=== PATIENT | male | born 1940 | race African-American/Black ===

== ENCOUNTER 2016-02-29 09:40 | Inpatient (IN) | payer OTHER ==
[~2016-02-29] VITALS: Ht 180.3 cm; Wt 141.5 kg
[~2016-02-29 09:40] MED LIST: AMITRIPTYLINE H25 MG PO; COUMADIN,JANTOVE5 MG PO; COUMADIN2 MG PO; K-DUR20 MEQ PO; LASIX40 MG PO; LASIX80 MG PO; LOPRESSOR50 MG PO; METOPROLOL SUCC50 MG PO; NOVOLIN 70100 UNIT/1 SQ; SIMVASTATIN20 MG PO; TOPROL XL50 MG PO; VITAMIN B COMP1 EACH PO; ZESTRIL,PRINIVI20 MG PO
[2016-02-29] MEDS ORDERED: WARFARIN SODIUM1 MG PO ×2 (10:42→10:43)
[2016-02-29] MEDS ORDERED: HUMULIN 70100 UNIT/2 SC (10:44)
[2016-02-29 11:08] LABS: POINT-OF-CARE METER ID UU13113702
[2016-02-29 12:34] LABS: EOSINOPHIL (%) 0.2 % (0-5); HEMATOCRIT 39.3 % (38.0-50.0); IMMATURE GRANULOCYTE (%) 0.4 % (0.0-0.7); IMMATURE GRANULOCYTE COUNT 0.5 K/uL; LYMPHOCYTE COUNT 1.8 K/uL (1.0-2.8); MCH 29.1 PG (29.0-34.0); MCHC 33.6 G/DL (30.0-36.0); MCV 86.6 FL (86-99); MEAN PLAT.VOLUME 9.7 uM^3 (9.0-12.4); MONOCYTE (%) 6.3 % (3-12); MONOCYTE COUNT 0.8 K/uL (0-0.8); NEUTROPHIL (%) 79.2 % (45-76); NEUTROPHIL COUNT 10.4 K/uL (1.8-6.4); PLATELET COUNT 345 K/uL (156-360); RBC DIS.WIDTH-SD 40.6 % (39-53); RED BLOOD COUNT 4.54 M/uL (4.00-5.50); WHITE BLOOD COUNT 13.1 K/uL (4.1-10.2)
[2016-02-29 12:49] LABS: CHLORIDE 100 mEq/L (99-109); POTASSIUM 5.3 mEq/L (3.7-5.4); SODIUM 134 mEq/L (136-147)
[2016-02-29 12:50] LABS: GLUCOSE 102 mg/dL (70-99)
[2016-02-29 12:52] LABS: ANION GAP 12 MEQ/L (2-14)
[2016-02-29 12:54] LABS: GFR ESTIMATE (CALCULATED) 33 mL/min/
[2016-02-29 12:55] LABS: UREA NITROGEN (BUN) 34 mg/dL (9-23)
[2016-02-29 13:41] LABS: INTER. NORMALIZED RATIO 7.5; PROTHROMBIN TIME 80.9 (9.2-11.2)
[2016-02-29 14:11] LABS: BILIRUBIN NEGATIVE; BLOOD LARGE; COLOR BROWN ((YELLOW)); GLUCOSE (STRIP) 100; KETONES NEGATIVE; PROTEIN (STRIP) 100; SPECIFIC GRAVITY 1.016 (1.000-1.030); UROBILINOGEN 0.2 MG/DL (0.2-1.0)
[2016-02-29 14:12] LABS: ADD MIUA? YES; LEUKOCYTES LARGE; NITRITE NEGATIVE
[2016-02-29 14:29] LABS: RED BLOOD CELLS TNTC /HPF (0-5); UCUL ADDED? YES; WHITE BLOOD CELLS TNTC /HPF (0-5)
[2016-02-29] MEDS ORDERED: NOVOLIN,HU100 UNITS/ SC (14:48)
[2016-02-29] MEDS ORDERED: COUMADIN4 MG PO (14:49)
[2016-02-29] MEDS ORDERED: LOPERAMIDE2 MG PO (14:50)
[2016-02-29 16:30] VITALS: BP 107/65
[2016-02-29 17:00] VITALS: BP 107/65
[2016-02-29 20:52] VITALS: BP 133/67
[2016-02-29 23:35] VITALS: BP 132/66
[2016-03-01 04:44] VITALS: BP 132/66
[2016-03-01 07:52] VITALS: BP 127/61
[2016-03-01 09:04] LABS: POINT-OF-CARE METER ID UU14174225
[2016-03-01 09:56] LABS: PROTHROMBIN TIME 20.3 (9.2-11.2)
[2016-03-01 10:03] LABS: ANION GAP 9 MEQ/L (2-14); C3 COMPLEMENT 137 MG/DL (58-170); C4 COMPLEMENT 50 MG/DL (10-40); CHLORIDE 103 MEQ/L (99-109); POTASSIUM 4.8 MEQ/L (3.7-5.4); SAMPLE HEMOLYSIS CHECK 0; SAMPLE ICTERIC CHECK 0; SAMPLE LIPEMIA CHECK 0; SODIUM 135 MEQ/L (136-147)
[2016-03-01 10:08] LABS: GFR ESTIMATE (CALCULATED) 45 mL/min/; GLUCOSE 117 mg/dL (70-99); UREA NITROGEN (BUN) 29 mg/dL (9-23)
[2016-03-01 10:17] LABS: INTACT PARATHYROID HORMONE 122 pg/mL (10-69)
[2016-03-01 10:33] LABS: AHBS INDEX 0.31; HEPATITIS B SURFACE ANTIBODY Nonreactive; HPCA INDEX 0.21
[2016-03-01 11:00] VITALS: BP 125/65
[2016-03-01 15:08] VITALS: BP 121/55
[2016-03-01 19:20] VITALS: BP 148/66
[2016-03-01 21:46] LABS: POINT-OF-CARE METER ID UU14174225
[2016-03-01 22:17] LABS: POINT-OF-CARE METER ID UU14174225
[2016-03-02] VITALS: BP 150/57
[2016-03-02 06:44] LABS: ANION GAP 8 MEQ/L (2-14); CHLORIDE 107 MEQ/L (99-109); GFR ESTIMATE (CALCULATED) 51 mL/min/; GLUCOSE 133 mg/dL (70-99); POTASSIUM 4.7 MEQ/L (3.7-5.4); SAMPLE HEMOLYSIS CHECK 0; SAMPLE ICTERIC CHECK 0; SAMPLE LIPEMIA CHECK 0; SODIUM 137 MEQ/L (136-147); UREA NITROGEN (BUN) 27 mg/dL (9-23)
[2016-03-02 07:09] LABS: INTER. NORMALIZED RATIO 1.6
[2016-03-02 07:38] LABS: Estimated Average Glucose 367 mg/dL (70-123); HEMOGLOBIN A1c (GLYCOHEMOGLOB) 14.4 % HGB (Below 5.7)
[2016-03-02 08:23] VITALS: BP 143/64
[2016-03-02 11:47] VITALS: BP 146/72
[2016-03-02 15:09] VITALS: BP 137/63
[2016-03-02 18:54] LABS: C DIFF TOXIN NEGATIVE (NEGATIVE)
[2016-03-02 18:57] LABS: PROBE CHECK PASS; SPECIMEN PROCESSING CONTROL PASS
[2016-03-02 19:58] VITALS: BP 147/64
[2016-03-02 21:18] LABS: POINT-OF-CARE METER ID UU14174225
[2016-03-02 23:57] VITALS: BP 129/59
[2016-03-03 04:25] VITALS: BP 133/62
[2016-03-03 07:18] LABS: INTER. NORMALIZED RATIO 1.5; PROTHROMBIN TIME 15.8 (9.2-11.2)
[2016-03-03 07:33] LABS: ANION GAP 7 MEQ/L (2-14); CHLORIDE 108 MEQ/L (99-109); GFR ESTIMATE (CALCULATED) 55 mL/min/; SAMPLE HEMOLYSIS CHECK 0; SAMPLE ICTERIC CHECK 0; SAMPLE LIPEMIA CHECK 0; SODIUM 135 MEQ/L (136-147); UREA NITROGEN (BUN) 20 mg/dL (9-23)
[2016-03-03 07:36] LABS: GLUCOSE 267 mg/dL (70-99)
[2016-03-03 08:40] VITALS: BP 172/66
[2016-03-03 11:42] VITALS: BP 165/62
[2016-03-03 16:04] VITALS: BP 163/73
[2016-03-03 17:47] LABS: MYELOPEROXIDASE ANTIBODY (MPO) <1.0 AI (<1.0); PROTEINASE-3 ANTIBODY+ <1.0 AI (<1.0)
[2016-03-03 19:42] VITALS: BP 147/88
[2016-03-04 00:25] VITALS: BP 164/61
[2016-03-04 06:53] LABS: PROTHROMBIN TIME 21.2 (9.2-11.2)
[2016-03-04 07:18] LABS: ANION GAP 6 MEQ/L (2-14); CHLORIDE 112 MEQ/L (99-109); GFR ESTIMATE (CALCULATED) > 59 mL/min/; POTASSIUM 4.5 MEQ/L (3.7-5.4); SAMPLE HEMOLYSIS CHECK 0; SAMPLE ICTERIC CHECK 0; SAMPLE LIPEMIA CHECK 0; SODIUM 138 MEQ/L (136-147); UREA NITROGEN (BUN) 16 mg/dL (9-23)
[2016-03-04 07:20] LABS: GLUCOSE 112 mg/dL (70-99)
[2016-03-04 07:55] VITALS: BP 152/66
[2016-03-04 10:01] LABS: URINE TOTAL PROTEIN 34 MG/DL (0-10)
[2016-03-04 11:55] VITALS: BP 167/72
[2016-03-04 15:42] VITALS: BP 129/76
[2016-03-04 19:33] VITALS: BP 145/67
[2016-03-04 23:36] VITALS: BP 148/58
[2016-03-05 04:43] LABS: CHLORIDE 110 mEq/L (99-109); POTASSIUM 4.6 mEq/L (3.7-5.4); SODIUM 136 mEq/L (136-147)
[2016-03-05 04:44] LABS: INTER. NORMALIZED RATIO 2.1; PROTHROMBIN TIME 22.2 (9.2-11.2)
[2016-03-05 04:47] LABS: ANION GAP 7 MEQ/L (2-14); GLUCOSE 173 mg/dL (70-99)
[2016-03-05 04:49] LABS: GFR ESTIMATE (CALCULATED) 55 mL/min/
[2016-03-05 04:50] LABS: UREA NITROGEN (BUN) 17 mg/dL (9-23)
[2016-03-05 04:52] LABS: URIC ACID 6.4 mg/dL (3.1-9.2)
[2016-03-05 08:00] VITALS: BP 132/61
[2016-03-05 08:14] LABS: HEMATOCRIT 35.4 % (38.0-50.0); MCH 28.8 PG (29.0-34.0); MCHC 31.4 G/DL (30.0-36.0); MCV 91.7 FL (86-99); MEAN PLAT.VOLUME 10.2 uM^3 (9.0-12.4); PLATELET COUNT 292 K/uL (156-360); RBC DIS.WIDTH-CV 13.9 % (11.8-14.6); RBC DIS.WIDTH-SD 46.2 % (39-53); RED BLOOD COUNT 3.86 M/uL (4.00-5.50); WHITE BLOOD COUNT 10.3 K/uL (4.1-10.2)
[2016-03-05 11:57] VITALS: BP 126/56
[2016-03-05] MEDS ORDERED: TAMSULOSIN HCL0.4 MG PO (13:40)
[2016-03-05] MEDS ORDERED: DICYCLOMINE HCL10 MG PO (13:40)
[2016-03-05] MEDS ORDERED: ERGOCALCIF50000 UNIT PO (13:40)
[2016-03-05] MEDS ORDERED: CEFTIN250 MG PO (13:40)
== END 2016-03-05 15:50 | disposition home health service (06) | DRG 690 ==
LOC: EME 09:40 → 5SOUTH 14:45 → EDOF 14:45 → 5SOUTH 16:10
PROVIDERS: Hospitalist; Internal Medicine; Internal Medicine Nephrology; Nurse Practitioner Adult Health; Physician Assistant
DX: N39.0 Urinary tract infection, site not specified (principal); N17.9 Acute kidney failure, unspecified; D68.32 Hemorrhagic disorder due to extrinsic circulating anticoagulants; I12.9 Hypertensive chronic kidney disease with stage 1 through stage 4 chronic kidney disease, or unspecified chronic kidney disease; T45.515A Adverse effect of anticoagulants, initial encounter; E11.22 Type 2 diabetes mellitus with diabetic chronic kidney disease; E87.5 Hyperkalemia; Z85.46 Personal history of malignant neoplasm of prostate; N18.3 Chronic kidney disease, stage 3 (moderate); Z86.718 Personal history of other venous thrombosis and embolism; Z86.711 Personal history of pulmonary embolism; E66.9 Obesity, unspecified; Z79.01 Long term (current) use of anticoagulants; Z68.39 Body mass index [BMI] 39.0-39.9, adult; R35.0 Frequency of micturition; I27.2 Other secondary pulmonary hypertension; E11.40 Type 2 diabetes mellitus with diabetic neuropathy, unspecified; E55.9 Vitamin D deficiency, unspecified; B96.1 Klebsiella pneumoniae [K. pneumoniae] as the cause of diseases classified elsewhere
CPT/HCPCS: 36415; 70450; 76770; 80048; 80069; 81003; 82306; 82436; 82570; 82948; 83036; 83970; 84156; 84300; 84550; 85025; 85027; 85610; 86021 90; 86160; 86334; 86335; 86706; 86803; 87077; 87086; 87186; 87340; 87493; 99281; 99285; G0103; J0696; J1815; J7030; J7050

== ENCOUNTER 2016-04-15 14:45 | Inpatient (IN) | payer OTHER ==
[~2016-04-15] VITALS: Ht 185.4 cm; Wt 122.5 kg
[~2016-04-15 14:45] MED LIST changes: +CEFTIN250 MG PO; +COUMADIN4 MG PO; +DICYCLOMINE HCL10 MG PO; +ERGOCALCIF50000 UNIT PO; +HUMULIN 70100 UNIT/2 SC; +LOPERAMIDE2 MG PO; +NOVOLIN,HU100 UNITS/ SC; +TAMSULOSIN HCL0.4 MG PO; +WARFARIN SODIUM1 MG PO
[2016-04-15 15:35] LABS: ADD MIUA? YES; BILIRUBIN NEGATIVE; BLOOD MODERATE; COLOR YELLOW ((YELLOW)); GLUCOSE (STRIP) >=500; KETONES NEGATIVE; LEUKOCYTES LARGE; NITRITE NEGATIVE; PROTEIN (STRIP) NEGATIVE; SPECIFIC GRAVITY 1.015 (1.000-1.030); UROBILINOGEN 0.2 MG/DL (0.2-1.0)
[2016-04-15 16:17] LABS: BACTERIA RARE /HPF; EPITHELIAL CELLS RARE /HPF; MUCUS NONE SEEN /LPF; RED BLOOD CELLS 30-40 /HPF (0-5); UCUL ADDED? YES; WHITE BLOOD CELLS TNTC /HPF (0-5)
[2016-04-15 16:57] LABS: EOSINOPHIL COUNT 0.1 K/uL (0-0.3); HEMATOCRIT 37.7 % (38.0-50.0); IMMATURE GRANULOCYTE (%) 0.1 % (0.0-0.7); IMMATURE GRANULOCYTE COUNT 0.1 K/uL; LYMPHOCYTE COUNT 1.8 K/uL (1.0-2.8); MCH 28.4 PG (29.0-34.0); MCHC 32.9 G/DL (30.0-36.0); MCV 86.5 FL (86-99); MEAN PLAT.VOLUME 9.3 uM^3 (9.0-12.4); MONOCYTE (%) 6.4 % (3-12); MONOCYTE COUNT 0.6 K/uL (0-0.8); NEUTROPHIL (%) 73.1 % (45-76); NEUTROPHIL COUNT 6.7 K/uL (1.8-6.4); PLATELET COUNT 278 K/uL (156-360); RBC DIS.WIDTH-CV 12.9 % (11.8-14.6); RBC DIS.WIDTH-SD 40.2 % (39-53); RED BLOOD COUNT 4.36 M/uL (4.00-5.50); WHITE BLOOD COUNT 9.2 K/uL (4.1-10.2)
[2016-04-15 17:06] LABS: INTER. NORMALIZED RATIO 1.9; PROTHROMBIN TIME 19.3 (9.2-11.2)
[2016-04-15 17:07] LABS: CHLORIDE 96 mEq/L (99-109); POTASSIUM 5.4 mEq/L (3.7-5.4); SODIUM 129 mEq/L (136-147)
[2016-04-15 17:11] LABS: ANION GAP 8 MEQ/L (2-14); TOTAL BILIRUBIN 0.4 mg/dL (0.0-1.0)
[2016-04-15 17:13] LABS: ALKALINE PHOSPHATASE 109 IU/L (3-129); GFR ESTIMATE (CALCULATED) 33 mL/min/
[2016-04-15 17:14] LABS: UREA NITROGEN (BUN) 31 mg/dL (9-23)
[2016-04-15 17:24] LABS: GLUCOSE 687 mg/dL (70-99)
[2016-04-15] MEDS ORDERED: WARFARIN SODIUM5 MG PO (18:27)
[2016-04-15] MEDS ORDERED: TAMSULOSIN HCL0.4 MG PO (18:28)
[2016-04-15 20:24] VITALS: BP 143/71
[2016-04-15 23:36] VITALS: BP 135/63
[2016-04-16] VITALS: BP 135/63
[2016-04-16 04:19] VITALS: BP 133/62
[2016-04-16 06:51] LABS: HEMATOCRIT 35.9 % (38.0-50.0); MCHC 33.1 G/DL (30.0-36.0); MCV 87.3 FL (86-99); MEAN PLAT.VOLUME 10.4 uM^3 (9.0-12.4); PLATELET COUNT 295 K/uL (156-360); RBC DIS.WIDTH-CV 13.4 % (11.8-14.6); RBC DIS.WIDTH-SD 42.7 % (39-53); RED BLOOD COUNT 4.11 M/uL (4.00-5.50); WHITE BLOOD COUNT 10.9 K/uL (4.1-10.2)
[2016-04-16 07:11] LABS: INTER. NORMALIZED RATIO 2.2; PROTHROMBIN TIME 23.4 (9.2-11.2)
[2016-04-16 07:19] LABS: ALKALINE PHOSPHATASE 88 IU/L (3-129); ANION GAP 10 MEQ/L (2-14); CHLORIDE 103 MEQ/L (99-109); POTASSIUM 4.7 MEQ/L (3.7-5.4); SAMPLE HEMOLYSIS CHECK 0; SAMPLE ICTERIC CHECK 0; SAMPLE LIPEMIA CHECK 0; TOTAL BILIRUBIN 0.4 MG/DL (0.0-1.0); UREA NITROGEN (BUN) 27 mg/dL (9-23)
[2016-04-16 07:22] LABS: GFR ESTIMATE (CALCULATED) 55 mL/min/; GLUCOSE 73 mg/dL (70-99); SODIUM 139 MEQ/L (136-147)
[2016-04-16 08:49] VITALS: BP 113/67
[2016-04-16 11:48] LABS: POINT-OF-CARE METER ID UU14188625
[2016-04-16 11:56] VITALS: BP 125/66
[2016-04-16 15:43] LABS: POINT-OF-CARE METER ID UU14188625
[2016-04-16 17:07] VITALS: BP 150/69
[2016-04-16 20:21] VITALS: BP 134/82
[2016-04-17] VITALS: BP 142/60
[2016-04-17 00:21] VITALS: BP 149/65
[2016-04-17 04:28] VITALS: BP 162/69
[2016-04-17 07:23] LABS: INTER. NORMALIZED RATIO 2.4; PROTHROMBIN TIME 25.5 (9.2-11.2)
[2016-04-17 07:27] VITALS: BP 144/47
[2016-04-17 07:40] LABS: ANION GAP 8 MEQ/L (2-14); CHLORIDE 105 MEQ/L (99-109); GFR ESTIMATE (CALCULATED) > 59 mL/min/; POTASSIUM 4.4 MEQ/L (3.7-5.4); SAMPLE HEMOLYSIS CHECK 0; SAMPLE ICTERIC CHECK 0; SAMPLE LIPEMIA CHECK 0; SODIUM 136 MEQ/L (136-147); UREA NITROGEN (BUN) 22 mg/dL (9-23)
[2016-04-17 07:41] LABS: GLUCOSE 240 mg/dL (70-99)
[2016-04-17 08:02] LABS: POINT-OF-CARE METER ID UU14174225
[2016-04-17 11:51] LABS: ANTI-HEPATITIS B CORE (IGM) Nonreactive; HBC IgM INDEX 0.07
[2016-04-17 12:26] LABS: POINT-OF-CARE METER ID UU14174225
[2016-04-17 12:30] VITALS: BP 138/52
[2016-04-17 12:50] LABS: POINT-OF-CARE METER ID UU14174225
[2016-04-17 16:15] VITALS: BP 143/65
== END 2016-04-17 18:33 | disposition home health service (06) | DRG 690 ==
LOC: EME 14:45 → 5SOUTH 18:05 → EDOF 18:05 → 5SOUTH 18:05
PROVIDERS: Emergency Medicine; Internal Medicine; Physician Assistant Medical
DX: N39.0 Urinary tract infection, site not specified (principal); N17.9 Acute kidney failure, unspecified; E87.0 Hyperosmolality and hypernatremia; E11.42 Type 2 diabetes mellitus with diabetic polyneuropathy; N40.1 Benign prostatic hyperplasia with lower urinary tract symptoms; E11.65 Type 2 diabetes mellitus with hyperglycemia; Z86.718 Personal history of other venous thrombosis and embolism; I12.9 Hypertensive chronic kidney disease with stage 1 through stage 4 chronic kidney disease, or unspecified chronic kidney disease; Z79.4 Long term (current) use of insulin; Z92.3 Personal history of irradiation; Z79.01 Long term (current) use of anticoagulants; Z90.79 Acquired absence of other genital organ(s); Z86.711 Personal history of pulmonary embolism; Z85.46 Personal history of malignant neoplasm of prostate; B96.1 Klebsiella pneumoniae [K. pneumoniae] as the cause of diseases classified elsewhere; R31.0 Gross hematuria; E87.6 Hypokalemia; I27.2 Other secondary pulmonary hypertension; E86.0 Dehydration; E78.00 Pure hypercholesterolemia, unspecified; N18.9 Chronic kidney disease, unspecified; R32 Unspecified urinary incontinence
CPT/HCPCS: 80048; 80053; 81003; 82948; 85025; 85027; 85610; 86705; 87077; 87086; 87186; 99281; 99285; J0696; J1644; J1815; J7030; J7050

== ENCOUNTER 2016-04-27 13:25 | Emergency (ER) | payer OTHER ==
[~2016-04-27] VITALS: Ht 182.9 cm; Wt 126.4 kg
[~2016-04-27 13:25] MED LIST changes: +WARFARIN SODIUM5 MG PO
[2016-04-27 14:55] LABS: ADD MIUA? YES; BILIRUBIN NEGATIVE; BLOOD MODERATE; COLOR YELLOW ((YELLOW)); GLUCOSE (STRIP) >=500; KETONES NEGATIVE; LEUKOCYTES LARGE; NITRITE NEGATIVE; PROTEIN (STRIP) 100; SPECIFIC GRAVITY 1.016 (1.000-1.030); UROBILINOGEN 0.2 MG/DL (0.2-1.0)
[2016-04-27 15:16] LABS: HEMATOCRIT 37.4 % (38.0-50.0); MCHC 31.8 G/DL (30.0-36.0); MEAN PLAT.VOLUME 9.1 uM^3 (9.0-12.4); PLATELET COUNT 315 K/uL (156-360); RBC DIS.WIDTH-CV 13.2 % (11.8-14.6); RBC DIS.WIDTH-SD 42.5 % (39-53); RED BLOOD COUNT 4.25 M/uL (4.00-5.50); WHITE BLOOD COUNT 11.3 K/uL (4.1-10.2)
[2016-04-27 15:30] LABS: CHLORIDE 101 mEq/L (99-109); POTASSIUM 3.9 mEq/L (3.7-5.4); SODIUM 134 mEq/L (136-147)
[2016-04-27 15:33] LABS: ANION GAP 9 MEQ/L (2-14)
[2016-04-27 15:35] LABS: GFR ESTIMATE (CALCULATED) > 59 mL/min/
[2016-04-27 15:36] LABS: UREA NITROGEN (BUN) 15 mg/dL (9-23)
[2016-04-27 16:02] LABS: WHITE BLOOD CELLS TNTC /HPF (0-5)
[2016-04-27 16:05] LABS: GLUCOSE 538 mg/dL (70-99)
[2016-04-27 19:08] LABS: POINT-OF-CARE METER ID UU14100415
[2016-04-27] MEDS ORDERED: KEFLEX500 MG PO (19:10)
[2016-04-27 19:36] VITALS: BP 151/64
[2016-05-03 08:31] LABS: POINT-OF-CARE METER ID UU14100415
[2016-05-03 08:31] LABS: POINT-OF-CARE METER ID UU14100415
== END 2016-04-27 19:56 | disposition home or self-care (01) ==
LOC: EME → EDBD 13:25 → EME 13:25 → EDSEX 13:25 → EME 19:56
PROVIDERS: Emergency Medicine
DX: E11.65 Type 2 diabetes mellitus with hyperglycemia (principal); N39.0 Urinary tract infection, site not specified; I10 Essential (primary) hypertension; Z86.711 Personal history of pulmonary embolism; Z86.718 Personal history of other venous thrombosis and embolism; Z79.4 Long term (current) use of insulin; Z79.01 Long term (current) use of anticoagulants; Z87.891 Personal history of nicotine dependence
CPT/HCPCS: 80048; 81003; 82948; 85027; 99281; 99285; J7030

== ENCOUNTER 2016-05-20 01:28 | Inpatient (IN) | payer OTHER ==
[~2016-05-20] VITALS: Ht 185.4 cm; Wt 122.2 kg
[~2016-05-20 01:28] MED LIST changes: +KEFLEX500 MG PO
[2016-05-20 02:02] LABS: ADD MIUA? YES; BILIRUBIN NEGATIVE; BLOOD SMALL; COLOR YELLOW ((YELLOW)); GLUCOSE (STRIP) >=500; KETONES NEGATIVE; LEUKOCYTES LARGE; NITRITE NEGATIVE; PROTEIN (STRIP) 30; SPECIFIC GRAVITY 1.012 (1.000-1.030); UROBILINOGEN 0.2 MG/DL (0.2-1.0)
[2016-05-20 02:25] LABS: BACTERIA 2+ /HPF; EPITHELIAL CELLS NONE SEEN /HPF; MUCUS NONE SEEN /LPF; UCUL ADDED? YES; WHITE BLOOD CELLS TNTC /HPF (0-5)
[2016-05-20 03:05] LABS: HEMATOCRIT 33.9 % (38.0-50.0); MCH 27.7 PG (29.0-34.0); MCHC 31.3 G/DL (30.0-36.0); MCV 88.7 FL (86-99); MEAN PLAT.VOLUME 9.8 uM^3 (9.0-12.4); PLATELET COUNT 300 K/uL (156-360); RBC DIS.WIDTH-CV 13.7 % (11.8-14.6); RED BLOOD COUNT 3.82 M/uL (4.00-5.50); WHITE BLOOD COUNT 9.3 K/uL (4.1-10.2)
[2016-05-20 03:15] LABS: CHLORIDE 101 mEq/L (99-109); POTASSIUM 4.5 mEq/L (3.7-5.4); SODIUM 132 mEq/L (136-147)
[2016-05-20 03:18] LABS: ANION GAP 8 MEQ/L (2-14)
[2016-05-20 03:19] LABS: TOTAL BILIRUBIN 0.3 mg/dL (0.0-1.0)
[2016-05-20 03:20] LABS: ALKALINE PHOSPHATASE 98 IU/L (3-129)
[2016-05-20 03:21] LABS: GFR ESTIMATE (CALCULATED) 51 mL/min/
[2016-05-20 03:22] LABS: UREA NITROGEN (BUN) 21 mg/dL (9-23)
[2016-05-20 03:24] LABS: LIPASE 21 U/L (1.0-51.0)
[2016-05-20 03:25] LABS: TROP-I INTERPRETATION NEGATIVE; TROPONIN-I < 0.01 ng/mL (0.0-0.30)
[2016-05-20 03:27] LABS: GLUCOSE 566 mg/dL (70-99)
[2016-05-20 04:08] LABS: INTER. NORMALIZED RATIO 1.2; PROTHROMBIN TIME 12.7 (9.2-11.2); PTT 30.3 (25-32)
[2016-05-20 05:34] LABS: POINT-OF-CARE METER ID UU13113702; POINT-OF-CARE USER ID 515033160
[2016-05-20 06:30] VITALS: BP 156/69
[2016-05-20 07:17] LABS: Estimated Average Glucose 335 mg/dL (70-123); HEMOGLOBIN A1c (GLYCOHEMOGLOB) 13.3 % HGB (Below 5.7)
[2016-05-20 07:35] LABS: HEMATOCRIT 34.4 % (38.0-50.0); MCH 28.2 PG (29.0-34.0); MCHC 31.4 G/DL (30.0-36.0); MCV 89.8 FL (86-99); PLATELET COUNT 290 K/uL (156-360); RBC DIS.WIDTH-CV 13.7 % (11.8-14.6); RBC DIS.WIDTH-SD 45.1 % (39-53); RED BLOOD COUNT 3.83 M/uL (4.00-5.50); WHITE BLOOD COUNT 10.7 K/uL (4.1-10.2)
[2016-05-20 09:03] LABS: POINT-OF-CARE METER ID UU14174225
[2016-05-20 12:20] VITALS: BP 152/70
[2016-05-20 12:26] LABS: POINT-OF-CARE METER ID UU14174225
[2016-05-20] MEDS ORDERED: ZOCOR20 MG PO (12:50)
[2016-05-20 15:11] VITALS: BP 148/66
[2016-05-20 17:32] LABS: POINT-OF-CARE METER ID UU14174225
[2016-05-20 20:27] VITALS: BP 151/66
[2016-05-20 21:36] LABS: POINT-OF-CARE METER ID UU14174225
[2016-05-20 22:07] LABS: POINT-OF-CARE METER ID UU14174225
[2016-05-20 22:17] LABS: POINT-OF-CARE METER ID UU14174225
[2016-05-21 00:28] VITALS: BP 141/67
[2016-05-21 03:53] VITALS: BP 150/70
[2016-05-21 07:21] LABS: HEMATOCRIT 33.9 % (38.0-50.0); MCH 27.5 PG (29.0-34.0); MCV 88.7 FL (86-99); MEAN PLAT.VOLUME 9.9 uM^3 (9.0-12.4); PLATELET COUNT 307 K/uL (156-360); RBC DIS.WIDTH-CV 13.9 % (11.8-14.6); RBC DIS.WIDTH-SD 45.5 % (39-53); RED BLOOD COUNT 3.82 M/uL (4.00-5.50)
[2016-05-21 07:47] LABS: ALKALINE PHOSPHATASE 76 IU/L (3-129); ANION GAP 7 MEQ/L (2-14); CHLORIDE 109 MEQ/L (99-109); GFR ESTIMATE (CALCULATED) > 59 mL/min/; POTASSIUM 4.2 MEQ/L (3.7-5.4); SAMPLE HEMOLYSIS CHECK 0; SAMPLE ICTERIC CHECK 0; SAMPLE LIPEMIA CHECK 0; TOTAL BILIRUBIN 0.2 MG/DL (0.0-1.0); UREA NITROGEN (BUN) 15 mg/dL (9-23)
[2016-05-21 07:48] LABS: GLUCOSE 61 mg/dL (70-99); SODIUM 141 MEQ/L (136-147)
[2016-05-21 07:56] LABS: PTT 32.7 (25-32)
[2016-05-21 08:05] VITALS: BP 174/71
[2016-05-21 08:32] LABS: POINT-OF-CARE METER ID UU14188625
[2016-05-21 10:01] LABS: INTER. NORMALIZED RATIO 1.3; PROTHROMBIN TIME 12.8 (9.2-11.2)
[2016-05-21 11:40] LABS: POINT-OF-CARE METER ID UU14188625
[2016-05-21 11:53] VITALS: BP 164/72
[2016-05-21 15:59] VITALS: BP 159/80
[2016-05-21 19:33] VITALS: BP 155/76
[2016-05-22 04:31] VITALS: BP 149/67
[2016-05-22 06:34] LABS: HEMATOCRIT 34.8 % (38.0-50.0); MCH 27.6 PG (29.0-34.0); MCHC 30.7 G/DL (30.0-36.0); MCV 89.7 FL (86-99); MEAN PLAT.VOLUME 9.8 uM^3 (9.0-12.4); PLATELET COUNT 315 K/uL (156-360); RBC DIS.WIDTH-CV 14.2 % (11.8-14.6); RBC DIS.WIDTH-SD 46.7 % (39-53); RED BLOOD COUNT 3.88 M/uL (4.00-5.50)
[2016-05-22 06:45] LABS: INTER. NORMALIZED RATIO 1.4; PROTHROMBIN TIME 14.1 (9.2-11.2)
[2016-05-22 07:27] LABS: PTT 72.4 (25-32)
[2016-05-22 08:04] VITALS: BP 144/67
[2016-05-22 08:27] LABS: POINT-OF-CARE METER ID UU14174225
[2016-05-22 11:10] LABS: ANION GAP 10 MEQ/L (2-14); CHLORIDE 107 MEQ/L (99-109); GFR ESTIMATE (CALCULATED) > 59 mL/min/; POTASSIUM 4.8 MEQ/L (3.7-5.4); SAMPLE HEMOLYSIS CHECK 0; SAMPLE ICTERIC CHECK 0; SAMPLE LIPEMIA CHECK 0; SODIUM 140 MEQ/L (136-147); UREA NITROGEN (BUN) 15 mg/dL (9-23)
[2016-05-22 11:11] LABS: GLUCOSE 220 mg/dL (70-99)
[2016-05-22 11:15] VITALS: BP 143/65
[2016-05-22 11:50] LABS: POINT-OF-CARE METER ID UU14174225
[2016-05-22 11:54] LABS: INTER. NORMALIZED RATIO 1.4; PROTHROMBIN TIME 14.4 (9.2-11.2); PTT 62.3 (25-32)
[2016-05-22 15:12] VITALS: BP 174/81
[2016-05-22 16:44] LABS: POINT-OF-CARE METER ID UU14174225
[2016-05-22 18:25] LABS: INTER. NORMALIZED RATIO 1.4; PROTHROMBIN TIME 14.4 (9.2-11.2); PTT 60.2 (25-32)
[2016-05-22 19:38] VITALS: BP 159/71
[2016-05-22 23:20] VITALS: BP 160/72
[2016-05-23 02:53] LABS: POINT-OF-CARE METER ID UU14188625
[2016-05-23 04:01] VITALS: BP 143/76
[2016-05-23 06:50] LABS: INTER. NORMALIZED RATIO 1.5; PROTHROMBIN TIME 15.9 (9.2-11.2)
[2016-05-23 08:54] VITALS: BP 152/68
[2016-05-23 11:24] VITALS: BP 159/70
[2016-05-23] MEDS ORDERED: WARFARIN SODIUM1 MG PO (11:58)
[2016-05-23] MEDS ORDERED: LOPRESSOR50 MG PO (11:59)
[2016-05-23] MEDS ORDERED: BACTRIM,SEPT1 TABLET PO (12:00)
== END 2016-05-23 16:07 | DRG 690 ==
LOC: EME → EDBD 01:28 → EME 01:28 → 5SOUTH 04:38 → EDOF 04:38 → 5SOUTH 06:11
PROVIDERS: Emergency Medicine; Internal Medicine
DX: N39.0 Urinary tract infection, site not specified (principal); N17.9 Acute kidney failure, unspecified; E87.1 Hypo-osmolality and hyponatremia; E11.40 Type 2 diabetes mellitus with diabetic neuropathy, unspecified; E11.65 Type 2 diabetes mellitus with hyperglycemia; F33.9 Major depressive disorder, recurrent, unspecified; L30.9 Dermatitis, unspecified; E11.22 Type 2 diabetes mellitus with diabetic chronic kidney disease; E78.2 Mixed hyperlipidemia; E78.5 Hyperlipidemia, unspecified; F03.90 Unspecified dementia, unspecified severity, without behavioral disturbance, psychotic disturbance, mood disturbance, and anxiety; E66.9 Obesity, unspecified; I27.2 Other secondary pulmonary hypertension; N39.490 Overflow incontinence; N18.3 Chronic kidney disease, stage 3 (moderate); N40.1 Benign prostatic hyperplasia with lower urinary tract symptoms; R79.1 Abnormal coagulation profile; C61 Malignant neoplasm of prostate; I12.9 Hypertensive chronic kidney disease with stage 1 through stage 4 chronic kidney disease, or unspecified chronic kidney disease; B96.1 Klebsiella pneumoniae [K. pneumoniae] as the cause of diseases classified elsewhere; Z79.01 Long term (current) use of anticoagulants; Z86.711 Personal history of pulmonary embolism; Z68.35 Body mass index [BMI] 35.0-35.9, adult; Z79.4 Long term (current) use of insulin; Z91.19 Patient's noncompliance with other medical treatment and regimen
CPT/HCPCS: 71010; 73523; 80048; 80048 91; 80053; 81003; 82010; 82800; 82948; 83036; 83690; 84484; 85027; 85610; 85730; 87077; 87086; 87186; 93005; 99281; 99284; J0696; J1815; J7030; J7050

== ENCOUNTER 2016-05-24 00:09 | Emergency (ER) | payer OTHER ==
[~2016-05-24] VITALS: Ht 185.4 cm; Wt 127.7 kg
[~2016-05-24 00:09] MED LIST changes: +BACTRIM,SEPT1 TABLET PO; +ZOCOR20 MG PO
[2016-05-24 00:15] VITALS: BP 160/54
== END 2016-05-24 01:47 | disposition left against medical advice (07) ==
LOC: EME 00:09
DX: R26.9 Unspecified abnormalities of gait and mobility (principal); E11.9 Type 2 diabetes mellitus without complications; Z87.440 Personal history of urinary (tract) infections; Z74.8 Other problems related to care provider dependency; Z91.19 Patient's noncompliance with other medical treatment and regimen; Z79.4 Long term (current) use of insulin
CPT/HCPCS: 81003; 99281; 99283

== ENCOUNTER 2016-06-13 18:02 | Emergency (ER) | payer OTHER ==
[~2016-06-13] VITALS: Ht 185.4 cm; Wt 122.8 kg
[2016-06-13 18:42] LABS: HEMATOCRIT 39.6 % (38.0-50.0); MCH 27.9 PG (29.0-34.0); MCHC 31.3 G/DL (30.0-36.0); MEAN PLAT.VOLUME 8.9 uM^3 (9.0-12.4); PLATELET COUNT 330 K/uL (156-360); RBC DIS.WIDTH-CV 14.1 % (11.8-14.6); RBC DIS.WIDTH-SD 46.1 % (39-53); RED BLOOD COUNT 4.45 M/uL (4.00-5.50); WHITE BLOOD COUNT 8.4 K/uL (4.1-10.2)
[2016-06-13 18:53] LABS: CHLORIDE 106 mEq/L (99-109); POTASSIUM 4.5 mEq/L (3.7-5.4); SODIUM 139 mEq/L (136-147)
[2016-06-13 18:56] LABS: GLUCOSE 48 mg/dL (70-99)
[2016-06-13 18:57] LABS: ANION GAP 11 MEQ/L (2-14); TOTAL BILIRUBIN 0.3 mg/dL (0.0-1.0)
[2016-06-13 18:59] LABS: ALKALINE PHOSPHATASE 109 IU/L (3-129); GFR ESTIMATE (CALCULATED) > 59 mL/min/
[2016-06-13 19:00] LABS: UREA NITROGEN (BUN) 22 mg/dL (9-23)
[2016-06-13 19:01] LABS: DIRECT BILIRUBIN 0.1 mg/dL (0.0-0.3)
[2016-06-13 19:03] LABS: CREATINE KINASE 95 IU/L (1-294); LIPASE 16 U/L (1.0-51.0); TOTAL CK 95 IU/L (1-294)
[2016-06-13 19:04] LABS: INTER. NORMALIZED RATIO 1.5; PROTHROMBIN TIME 15.5 (9.2-11.2)
[2016-06-13 19:11] LABS: CK-MB 2.5 ng/mL (0.0-4.9)
[2016-06-13] MEDS ORDERED: VALIUM5 MG PO (19:33)
[2016-06-13 20:35] VITALS: BP 125/65
== END 2016-06-13 20:35 | disposition home or self-care (01) ==
LOC: EME 18:02
PROVIDERS: Emergency Medicine
DX: R25.2 Cramp and spasm (principal); R60.0 Localized edema; E11.9 Type 2 diabetes mellitus without complications; I11.0 Hypertensive heart disease with heart failure; I50.9 Heart failure, unspecified; E78.5 Hyperlipidemia, unspecified; Z86.711 Personal history of pulmonary embolism; Z86.718 Personal history of other venous thrombosis and embolism; Z85.46 Personal history of malignant neoplasm of prostate; Z79.4 Long term (current) use of insulin; Z87.891 Personal history of nicotine dependence
CPT/HCPCS: 80048; 80076; 82550; 82553; 83690; 85027; 85610; 99281; 99284

== ENCOUNTER 2016-06-26 06:50 | Emergency (ER) | payer OTHER ==
[~2016-06-26] VITALS: Ht 185.4 cm; Wt 119.4 kg
[~2016-06-26 06:50] MED LIST changes: +VALIUM5 MG PO
[2016-06-26 08:29] LABS: ADD MIUA? YES; BILIRUBIN NEGATIVE; BLOOD SMALL; COLOR YELLOW ((YELLOW)); GLUCOSE (STRIP) >=500; KETONES NEGATIVE; LEUKOCYTES LARGE; NITRITE NEGATIVE; PROTEIN (STRIP) 100; SPECIFIC GRAVITY 1.012 (1.000-1.030); UROBILINOGEN 0.2 MG/DL (0.2-1.0)
[2016-06-26 08:39] LABS: BACTERIA 3+ /HPF; BUDDING YEAST 4+; EPITHELIAL CELLS NONE SEEN /HPF; MUCUS NONE SEEN /LPF; RED BLOOD CELLS 15-20 /HPF (0-5); UCUL ADDED? YES; WHITE BLOOD CELLS TNTC /HPF (0-5); WHITE BLOOD CELLS CLUMP MANY /HPF (0-5)
[2016-06-26] MEDS ORDERED: BACTRIM,SEPT1 TABLET PO (08:53)
[2016-06-26 09:16] VITALS: BP 114/45
[2016-06-26 09:23] LABS: POINT-OF-CARE METER ID UU14100415
== END 2016-06-26 09:20 | disposition home or self-care (01) ==
LOC: EME 06:50
PROVIDERS: Nurse Practitioner Family
DX: N39.0 Urinary tract infection, site not specified (principal); R31.9 Hematuria, unspecified; E11.65 Type 2 diabetes mellitus with hyperglycemia; E78.5 Hyperlipidemia, unspecified; I10 Essential (primary) hypertension; Z85.46 Personal history of malignant neoplasm of prostate; Z86.711 Personal history of pulmonary embolism; Z86.718 Personal history of other venous thrombosis and embolism; Z79.4 Long term (current) use of insulin; Z87.891 Personal history of nicotine dependence
CPT/HCPCS: 81003; 82948; 87077; 87086; 87186; 99281; 99284

== ENCOUNTER 2017-02-17 15:00 | Emergency (ER) | payer OTHER ==
[~2017-02-17] VITALS: Ht 182.9 cm; Wt 95.0 kg
[2017-02-17 18:13] LABS: HEMATOCRIT 37.7 % (38.0-50.0); HEMOGLOBIN 12.7 G/DL (12.5-16.6); MCH 29.3 PG (29.0-34.0); MCHC 33.7 G/DL (30.0-36.0); MCV 86.9 FL (86-99); PLATELET COUNT 276 K/uL (156-360); RBC DIS.WIDTH-SD 40.9 % (39-53); RED BLOOD COUNT 4.34 M/uL (4.00-5.50); WHITE BLOOD COUNT 11.7 K/uL (4.1-10.2)
[2017-02-17 18:14] LABS: APPEARANCE CLOUDY ((CLEAR)); BILIRUBIN NEGATIVE; BLOOD MODERATE; COLOR YELLOW ((YELLOW)); GLUCOSE (STRIP) >=500; KETONES 5; LEUKOCYTES LARGE; NITRITE NEGATIVE; PROTEIN (STRIP) 100; SPECIFIC GRAVITY 1.014 (1.000-1.030); UROBILINOGEN 0.2 MG/DL (0.2-1.0)
[2017-02-17 18:21] LABS: ALBUMIN 3.4 g/dL (3.2-4.8)
[2017-02-17 18:22] LABS: CHLORIDE 97 mEq/L (99-109); POTASSIUM 5.6 mEq/L (3.7-5.4); SODIUM 126 mEq/L (136-147)
[2017-02-17 18:26] LABS: TOTAL BILIRUBIN 0.5 mg/dL (0.0-1.0)
[2017-02-17 18:27] LABS: ALKALINE PHOSPHATASE 138 IU/L (3-129)
[2017-02-17 18:28] LABS: CREATININE 2.1 mg/dL (0.6-1.3); GFR ESTIMATE (CALCULATED) 40 mL/min/ (58.99-99999)
[2017-02-17 18:29] LABS: AST (GOT) 21 IU/L (2-34); UREA NITROGEN (BUN) 40 mg/dL (9-23)
[2017-02-17 18:30] LABS: GLUCOSE 706 mg/dL (70-99)
[2017-02-17 18:31] LABS: ALT (GPT) 21 IU/L (3-49)
[2017-02-17 18:49] LABS: AMORPHOUS URATES CRYSTALS 1+; BACTERIA 1+ /HPF; EPITHELIAL CELLS NONE SEEN /HPF; MUCUS NONE SEEN /LPF; RED BLOOD CELLS 0-5 /HPF (0-5); UCUL ADDED? YES; WHITE BLOOD CELLS TNTC /HPF (0-5)
[2017-02-17 22:57] LABS: CHLORIDE 104 mEq/L (99-109); POTASSIUM 5.1 mEq/L (3.7-5.4); SODIUM 130 mEq/L (136-147)
[2017-02-17 23:00] LABS: GLUCOSE 513 mg/dL (70-99)
[2017-02-17 23:03] LABS: CREATININE 1.7 mg/dL (0.6-1.3); GFR ESTIMATE (CALCULATED) 51 mL/min/ (58.99-99999)
[2017-02-17 23:04] LABS: UREA NITROGEN (BUN) 33 mg/dL (9-23)
[2017-02-17] MEDS ORDERED: NORCO 5/3251 TABLET PO (23:27)
[2017-02-17] MEDS ORDERED: FLOMAX0.4 MG PO (23:27)
[2017-02-17] MEDS ORDERED: LEVAQUIN750 MG PO (23:27)
[2017-02-18 02:19] VITALS: BP 171/78
[2017-02-19] MEDS ORDERED: COUMADIN1 MG PO ×2 (19:44→19:45)
[2017-02-19] MEDS ORDERED: COUMADIN5 MG PO (19:46)
[2017-02-19] MEDS ORDERED: VITAMIN B-6100 MG PO (19:48)
[2017-02-19] MEDS ORDERED: VISINE ADVANCED15 ML BOTH EYES (19:48)
[2017-02-19] MEDS ORDERED: IMODIUM A-D2 M2 PO (19:48)
[2017-02-19] MEDS ORDERED: TYLENOL EXTRA500 MG PO (19:49)
== END 2017-02-18 02:10 | disposition home or self-care (01) ==
LOC: EME 15:00
PROVIDERS: Emergency Medicine Emergency Medical Services
DX: E11.65 Type 2 diabetes mellitus with hyperglycemia (principal); E87.1 Hypo-osmolality and hyponatremia; E87.5 Hyperkalemia; Z91.14 Patient's other noncompliance with medication regimen; Z79.4 Long term (current) use of insulin; N40.1 Benign prostatic hyperplasia with lower urinary tract symptoms; N39.0 Urinary tract infection, site not specified; Z91.81 History of falling
CPT/HCPCS: 80048 91; 80053; 81003; 82948; 85027; 87077; 87086; 87186; 99281; 99285; J2270; J7040

== ENCOUNTER 2017-02-19 17:02 | Inpatient (IN) | payer OTHER ==
[~2017-02-19] VITALS: Ht 185.4 cm; Wt 132.7 kg
[~2017-02-19 17:02] MED LIST changes: +FLOMAX0.4 MG PO; +LEVAQUIN750 MG PO; +NORCO 5/3251 TABLET PO
[2017-02-19 17:25] LABS: CARBON DIOXIDE (BICARBONATE) 22.5 MEQ/L (20-31); HEMATOCRIT 36.3 % (38.0-50.0); MCH 29.4 PG (29.0-34.0); MCHC 33.1 G/DL (30.0-36.0); PLATELET COUNT 242 K/uL (156-360); RBC DIS.WIDTH-CV 13.2 % (11.8-14.6); RBC DIS.WIDTH-SD 43.3 % (39-53); RED BLOOD COUNT 4.08 M/uL (4.00-5.50); WHITE BLOOD COUNT 9.4 K/uL (4.1-10.2)
[2017-02-19 17:34] LABS: CHLORIDE 104 mEq/L (99-109); POTASSIUM 5.6 mEq/L (3.7-5.4); SODIUM 131 mEq/L (136-147)
[2017-02-19 17:40] LABS: CREATININE 1.9 mg/dL (0.6-1.3); GFR ESTIMATE (CALCULATED) 45 mL/min/ (58.99-99999)
[2017-02-19 17:41] LABS: UREA NITROGEN (BUN) 32 mg/dL (9-23)
[2017-02-19 17:43] LABS: GLUCOSE 462 mg/dL (70-99)
[2017-02-19 19:02] LABS: APPEARANCE CLOUDY ((CLEAR)); BILIRUBIN NEGATIVE; BLOOD MODERATE; COLOR YELLOW ((YELLOW)); GLUCOSE (STRIP) >=500; KETONES 5; LEUKOCYTES LARGE; NITRITE NEGATIVE; PROTEIN (STRIP) 100; SPECIFIC GRAVITY 1.014 (1.000-1.030); UROBILINOGEN 0.2 MG/DL (0.2-1.0)
[2017-02-19 19:21] LABS: BACTERIA 4+ /HPF; EPITHELIAL CELLS 1+ /HPF; MUCUS TRACE /LPF; RED BLOOD CELLS NONE SEEN /HPF (0-5); UCUL ADDED? YES; WHITE BLOOD CELLS TNTC /HPF (0-5)
[2017-02-19] MEDS ORDERED: COUMADIN1 MG PO ×2 (19:44→19:45)
[2017-02-19] MEDS ORDERED: COUMADIN5 MG PO (19:46)
[2017-02-19] MEDS ORDERED: VITAMIN B-6100 MG PO (19:48)
[2017-02-19] MEDS ORDERED: VISINE ADVANCED15 ML BOTH EYES (19:48)
[2017-02-19] MEDS ORDERED: IMODIUM A-D2 M2 PO (19:48)
[2017-02-19] MEDS ORDERED: TYLENOL EXTRA500 MG PO (19:49)
[2017-02-19 22:19] LABS: INTER. NORMALIZED RATIO 1.3
[2017-02-19 22:56] LABS: PTT 28.5 SEC (25-37)
[2017-02-19 23:47] LABS: CHLORIDE 112 mEq/L (99-109); POTASSIUM 4.6 mEq/L (3.7-5.4)
[2017-02-19 23:48] LABS: GLUCOSE 288 mg/dL (70-99)
[2017-02-19 23:52] LABS: CREATININE 1.5 mg/dL (0.6-1.3); GFR ESTIMATE (CALCULATED) 59 mL/min/ (58.99-99999)
[2017-02-19 23:53] LABS: UREA NITROGEN (BUN) 26 mg/dL (9-23)
[2017-02-19 23:57] LABS: SODIUM 138 mEq/L (136-147)
[2017-02-20 20:00] VITALS: BP 140/63
[2017-02-21] VITALS: BP 117/72
[2017-02-21 07:41] VITALS: BP 160/81
[2017-02-21 10:05] LABS: INTER. NORMALIZED RATIO 1.4
[2017-02-21 10:34] LABS: CHLORIDE 113 MEQ/L (99-109); CREATININE 1.5 MG/DL (0.6-1.3); GFR ESTIMATE (CALCULATED) 59 mL/min/ (58.99-99999); POTASSIUM 4.5 MEQ/L (3.7-5.4); SODIUM 141 MEQ/L (136-147); UREA NITROGEN (BUN) 19 mg/dL (9-23)
[2017-02-21 10:35] LABS: Estimated Average Glucose 335 mg/dL (70-123); GLUCOSE 77 mg/dL (70-99); HEMOGLOBIN A1c (GLYCOHEMOGLOB) 13.3 % HGB (Below 5.7)
[2017-02-21 12:40] VITALS: BP 151/70
[2017-02-21 12:57] LABS: C DIFF TOXIN NEGATIVE (NEGATIVE)
[2017-02-21 16:45] VITALS: BP 183/77
[2017-02-21 19:50] VITALS: BP 145/65
[2017-02-21 23:17] VITALS: BP 177/77
[2017-02-22 04:00] VITALS: BP 155/67
[2017-02-22 06:32] LABS: INTER. NORMALIZED RATIO 1.7
[2017-02-22 07:36] VITALS: BP 160/70
[2017-02-22 16:39] VITALS: BP 179/78
[2017-02-22 22:52] VITALS: BP 176/74
[2017-02-23 06:29] LABS: INTER. NORMALIZED RATIO 2.2
[2017-02-23 06:38] LABS: CHLORIDE 109 MEQ/L (99-109); CREATININE 1.2 MG/DL (0.6-1.3); GFR ESTIMATE (CALCULATED) > 59 mL/min/ (58.99-99999); MAGNESIUM 1.3 mg/dl (1.3-2.7); POTASSIUM 4.2 MEQ/L (3.7-5.4); SODIUM 135 MEQ/L (136-147); UREA NITROGEN (BUN) 14 mg/dL (9-23)
[2017-02-23 06:40] LABS: GLUCOSE 326 mg/dL (70-99)
[2017-02-23 07:01] LABS: HEMATOCRIT 35.4 % (38.0-50.0); HEMOGLOBIN 11.2 G/DL (12.5-16.6); MCHC 31.6 G/DL (30.0-36.0); MCV 91.7 FL (86-99); PLATELET COUNT 222 K/uL (156-360); RBC DIS.WIDTH-CV 13.8 % (11.8-14.6); RBC DIS.WIDTH-SD 46.8 % (39-53); RED BLOOD COUNT 3.86 M/uL (4.00-5.50); WHITE BLOOD COUNT 9.5 K/uL (4.1-10.2)
[2017-02-23 07:30] VITALS: BP 184/79
[2017-02-23 10:35] VITALS: BP 151/70
[2017-02-23 15:00] VITALS: BP 147/67
[2017-02-23 22:43] VITALS: BP 160/70
[2017-02-24 06:30] LABS: CHLORIDE 110 MEQ/L (99-109); CREATININE 1.2 MG/DL (0.6-1.3); GFR ESTIMATE (CALCULATED) > 59 mL/min/ (58.99-99999); GLUCOSE 305 mg/dL (70-99); POTASSIUM 4.1 MEQ/L (3.7-5.4); SODIUM 135 MEQ/L (136-147); UREA NITROGEN (BUN) 14 mg/dL (9-23)
[2017-02-24 07:04] LABS: INTER. NORMALIZED RATIO 3.3
[2017-02-24 08:24] VITALS: BP 161/80
[2017-02-24 23:52] VITALS: BP 123/56
[2017-02-25 08:19] VITALS: BP 147/66
[2017-02-25 09:23] LABS: CHLORIDE 112 mEq/L (99-109); POTASSIUM 4.2 mEq/L (3.7-5.4); SODIUM 133 mEq/L (136-147)
[2017-02-25 09:25] LABS: GLUCOSE 386 mg/dL (70-99)
[2017-02-25 09:29] LABS: CREATININE 1.6 mg/dL (0.6-1.3); GFR ESTIMATE (CALCULATED) 55 mL/min/ (58.99-99999); UREA NITROGEN (BUN) 17 mg/dL (9-23)
[2017-02-25 17:08] VITALS: BP 160/69
[2017-02-26 00:15] VITALS: BP 145/67
[2017-02-26 06:35] LABS: CHLORIDE 108 MEQ/L (99-109); CREATININE 1.6 MG/DL (0.6-1.3); GFR ESTIMATE (CALCULATED) 55 mL/min/ (58.99-99999); GLUCOSE 338 mg/dL (70-99); POTASSIUM 4.1 MEQ/L (3.7-5.4); SODIUM 134 MEQ/L (136-147); UREA NITROGEN (BUN) 20 mg/dL (9-23)
[2017-02-26 06:58] LABS: INTER. NORMALIZED RATIO 1.4
[2017-02-26 08:54] VITALS: BP 166/70
[2017-02-26 13:15] LABS: CREATINE KINASE 82 IU/L (1-294); TOTAL CK 82 IU/L (1-294)
[2017-02-26 13:58] LABS: CK-MB 2.5 ng/mL (0.0-4.9)
[2017-02-26 16:30] VITALS: BP 144/66
[2017-02-26 23:02] VITALS: BP 163/70
[2017-02-27 06:43] LABS: INTER. NORMALIZED RATIO 1.5
[2017-02-27 07:42] LABS: CHLORIDE 109 MEQ/L (99-109); CREATININE 1.7 MG/DL (0.6-1.3); GFR ESTIMATE (CALCULATED) 51 mL/min/ (58.99-99999); GLUCOSE 260 mg/dL (70-99); POTASSIUM 4.3 MEQ/L (3.7-5.4); SODIUM 135 MEQ/L (136-147); UREA NITROGEN (BUN) 21 mg/dL (9-23)
[2017-02-27 08:30] VITALS: BP 144/67
[2017-02-27 23:45] VITALS: BP 160/71
[2017-02-28 06:38] LABS: INTER. NORMALIZED RATIO 1.6
[2017-02-28 06:55] LABS: CHLORIDE 110 MEQ/L (99-109); CREATININE 1.6 MG/DL (0.6-1.3); GFR ESTIMATE (CALCULATED) 55 mL/min/ (58.99-99999); GLUCOSE 155 mg/dL (70-99); POTASSIUM 4.4 MEQ/L (3.7-5.4); SODIUM 137 MEQ/L (136-147); UREA NITROGEN (BUN) 24 mg/dL (9-23)
[2017-02-28 07:30] VITALS: BP 153/69
[2017-02-28] MEDS ORDERED: LEVEMIR100 UNIT/2 SC (13:13)
[2017-02-28] MEDS ORDERED: NOVOLOG PE100 UNITS/ SC (13:14)
[2017-02-28] MEDS ORDERED: ENDOCET 5-3251 EACH PO (13:14)
[2017-02-28] MEDS ORDERED: COUMADIN10 MG PO (13:18)
[2017-02-28] MEDS ORDERED: NABI650T PO (13:26)
[2017-02-28 16:12] VITALS: BP 137/63
== END 2017-02-28 17:21 | DRG 683 ==
LOC: EME 17:02 → EDOF 21:16 → ENRESERV 21:18 → EDOF 21:55 → ENRESERV 21:55 → EDOF 21:55 → 5EAST 21:55 → CANRESERV 02-20 02:07 → ENRESERV 02-20 02:07 → EDOF 02-20 13:14 → ENRESERV 02-20 14:22 → 5EAST 02-20 18:07
PROVIDERS: Emergency Medicine; Hospitalist; Internal Medicine; Student in an Organized Health Care Education/Training Program
DX: N17.9 Acute kidney failure, unspecified (principal); E11.65 Type 2 diabetes mellitus with hyperglycemia; E87.2 Acidosis; M17.0 Bilateral primary osteoarthritis of knee; I12.9 Hypertensive chronic kidney disease with stage 1 through stage 4 chronic kidney disease, or unspecified chronic kidney disease; N18.3 Chronic kidney disease, stage 3 (moderate); E11.22 Type 2 diabetes mellitus with diabetic chronic kidney disease; E11.42 Type 2 diabetes mellitus with diabetic polyneuropathy; E11.622 Type 2 diabetes mellitus with other skin ulcer; L89.322 Pressure ulcer of left buttock, stage 2; E87.5 Hyperkalemia; N39.0 Urinary tract infection, site not specified; E86.0 Dehydration; E87.1 Hypo-osmolality and hyponatremia; E83.51 Hypocalcemia; I27.20 Pulmonary hypertension, unspecified; E11.649 Type 2 diabetes mellitus with hypoglycemia without coma; K52.9 Noninfective gastroenteritis and colitis, unspecified; N40.1 Benign prostatic hyperplasia with lower urinary tract symptoms; N39.498 Other specified urinary incontinence; R31.0 Gross hematuria; E66.01 Morbid (severe) obesity due to excess calories; Z68.37 Body mass index [BMI] 37.0-37.9, adult; J44.9 Chronic obstructive pulmonary disease, unspecified; E78.5 Hyperlipidemia, unspecified; D64.9 Anemia, unspecified; M40.209 Unspecified kyphosis, site unspecified; Z91.81 History of falling; Z91.14 Patient's other noncompliance with medication regimen; Z60.2 Problems related to living alone; Z79.4 Long term (current) use of insulin; Z85.038 Personal history of other malignant neoplasm of large intestine; Z85.46 Personal history of malignant neoplasm of prostate; Z86.711 Personal history of pulmonary embolism; Z86.718 Personal history of other venous thrombosis and embolism; Z87.891 Personal history of nicotine dependence; Z83.3 Family history of diabetes mellitus; Z82.49 Family history of ischemic heart disease and other diseases of the circulatory system
CPT/HCPCS: 70450; 73502; 73560; 73564; 76770; 76881; 80048; 80048 91; 80053; 81003; 82010; 82550; 82553; 82803; 82948; 83036; 83735; 85027; 85610; 85730; 87077; 87086; 87186; 87493; 87502; 90686; 93005; 97530 GO; 99281; 99283; 99285; J0696; J1650; J1815; J2060; J2270; J7030; J7040; J7120

== ENCOUNTER 2017-02-19 21:25 | Emergency (ER) | payer OTHER ==
[~2017-02-19 21:25] MED LIST changes: +COUMADIN1 MG PO; +COUMADIN5 MG PO; +IMODIUM A-D2 M2 PO; +TYLENOL EXTRA500 MG PO; +VISINE ADVANCED15 ML BOTH EYES; +VITAMIN B-6100 MG PO
== END 2017-02-19 21:31 | disposition left against medical advice (07) ==
LOC: EME 21:25
DX: M54.9 Dorsalgia, unspecified (principal); Z53.21 Procedure and treatment not carried out due to patient leaving prior to being seen by health care provider

== ENCOUNTER 2017-10-13 10:48 | Emergency (ER) | payer OTHER ==
[~2017-10-13] VITALS: Ht 185.4 cm; Wt 140.3 kg
[~2017-10-13 10:48] MED LIST changes: +COUMADIN10 MG PO; +ENDOCET 5-3251 EACH PO; +LEVEMIR100 UNIT/2 SC; +NABI650T PO; +NOVOLOG PE100 UNITS/ SC
[2017-10-13 14:06] VITALS: BP 141/65
== END 2017-10-13 14:08 ==
LOC: EME 10:48
PROC: 0HQLXZZ Repair Left Lower Leg Skin, External Approach (ICD-10-PCS; principal; 2017-10-13)
PROC: 3E0234Z Introduction of Serum, Toxoid and Vaccine into Muscle, Percutaneous Approach (ICD-10-PCS; principal; 2017-10-13)
DX: S81.812A Laceration without foreign body, left lower leg, initial encounter (principal); W23.1XXA Caught, crushed, jammed, or pinched between stationary objects, initial encounter; Y92.129 Unspecified place in nursing home as the place of occurrence of the external cause; Z23 Encounter for immunization; J44.9 Chronic obstructive pulmonary disease, unspecified; E78.5 Hyperlipidemia, unspecified; I11.0 Hypertensive heart disease with heart failure; I50.9 Heart failure, unspecified; E11.9 Type 2 diabetes mellitus without complications; Z85.46 Personal history of malignant neoplasm of prostate; Z86.718 Personal history of other venous thrombosis and embolism; Z86.711 Personal history of pulmonary embolism
CPT/HCPCS: 99281; 99284